=== PATIENT | female | born 1945 | race Caucasian/White ===

== ENCOUNTER → 2016-10-10 | Day surgery (SDC) | payer MEDICARE ==
[~2016-10-10] VITALS: Ht 152.4 cm; Wt 86.2 kg
[~2016-10-10] MED LIST: ACETAMINOPHEN 500 MG TAB As Ordered ONE; ACETAMINOPHEN 500 MG TAB PO ONE; ACETYLCHOLINE OPHTH SOLN 1% 2ML (MIOCHOL-E) As Ordered ONE; ASPI325T28 PO; BALANCED SALT IRRIGATION SOLUTION 500ML BAG (FOR OR EYE MACHINE) As Ordered ONE; CHLO25TA PO; D5W/0.2% SODIUM CHLORIDE 250 ML IV ONE; FURO1TAB15 PO; FURO40TA2 PO; HEALON DUET (HEALON 10MG/ML 0.55ML & HEALON ENDOCOAT 30MG/ML 0.85ML) As Ordered ONE; HUMA100I3 SC; INSUH10VL SC; INSUHUMDS SC; INSULANT SC; LANO0.1211 PO; LIDOCAINE 0.75%/EPINEPHRINE 0.025% IN BSS 1ML SYR INTRACAMERAL (OR ONLY) As Ordered ONE; LIDOCAINE 4% INJ 5 ML AMP As Ordered ONE; LIPI20TA PO; LR 1,000 ML IV SCH; METO-207 PO; MIDAZOLAM INJ 2 MG/2 ML VIAL (J2250) As Ordered ONE; MULTCAP9 PO; OFLOXACIN 0.3 % (OCUFLOX) OPTH SOL 5ML OS ONE; ONDANSETRON 4MG/2ML VIAL (J2405) IV PRN; PANT40TA2 PO; PHENYLEPHRINE 2.5% OPHTH SOL 2ML OS ONE; PLAV75TA38 PO; POVIDONE-IODINE 5% OPHTH PREP SOL 30ML As Ordered ONE; PRAL1INJ SC; PROPARACAINE 0.5% OPHTH SOL 15ML OS ONE; SOTA80TA6 PO; SPIR100T PO; SPIR25TA2 PO; TOBRADEX OPHTH OINT 3.5 GM As Ordered ONE; TROPICAMIDE 1% OPHTH SOLN 2ML OS ONE; XANA0.25 PO; fentaNYL 100 MCG/2 ML INJECTION (J3010) As Ordered ONE
[2016-10-10 14:15] VITALS: BP 112/58
--- NOTE | 2016-10-11 10:56 | RO ---
DATE OF PROCEDURE: 10/10/2016 PREOPERATIVE DIAGNOSIS: 1. Visually significant nuclear sclerotic cataract left eye 2. Glaucoma, left eye POSTOPERATIVE DIAGNOSIS: Same PROCEDURE: 1. Cataract extraction with phacoemulsification, placement of intraocular lens Raghav AU00TO, 21.0 D , left eye 2. Use of endoscopic cyclophotocoagulation, left eye SURGEON: Bright Borrero DO INSURANCE EXAMINER: ANESTHESIA: Local with monitored anesthesia care (MAC). COMPLICATIONS: None. POSTOPERATIVE CONDITION: Stable. INDICATION FOR SURGERY: Blurred vision left eye affecting patient's activities of daily living. DESCRIPTION OF PROCEDURE: The patient was seen in the preoperative area and properly identified. The correct operative eye was identified and marked. Attention was turned to that eye. The patient received topical antibiotics in the preoperative area. The patient then received topical dilating drops consisting of tropicamide and phenylephrine. The patient was then transferred to the operating room. The correct side was reidentified. The patient received topical anesthetics and antibiotics on the surface of the eye. The eye was prepped and draped in a sterile fashion. The upper and lower eyelids were isolated with Tegaderm tape, and the lids were held open with an adjustable speculum. Using a sideport blade, a paracentesis incision was made. Intraocular preservative-free lidocaine was then injected into the anterior chamber. Viscoelastic was then injected into the anterior chamber through the paracentesis. Using a 2.65 mm sharp-tipped keratome, the anterior chamber was entered via a temporal clear corneal incision. A continuous curvilinear capsulorrhexis was created with the aid of a 26-gauge cystotome and Utrata forceps. Hydrodissection was performed with balanced salt solution (BSS) on a blunt cannula until the nucleus was freely mobile. The crystalline lens was phacoemulsified and aspirated. Additional cohesive viscoelastic was placed into the capsular bag to deepen it. A AU00TO was placed into the capsular bag and placement was confirmed by visualizing the anterior capsulorhexxis. A small anterior capsular tear was present that did not extend posteriorly. Additional viscoelastic was placed in the ciliary sulcus and then the endoscopic photocoagulation probe was placed into the anterior chamber through a temporal clear corneal incision. The ciliary processes were visualized and then treatment was applied to 270 degrees on 0.15 energy in a continuous mode and then the probe was withdrawn from the eye. Viscoelastic was removed from the eye using the irrigation aspiration function. The lens remained in good position. BSS was used to hydrate the primary temporal clear corneal incision. Miochol was placed to a moderately small pupil. Resure sealant was placed on the temporal incision for closure and then BSS was used to refill the anterior chamber. The incisions were tested and found to be water tight. The eyelid speculum was then carefully removed. Tobradex ointment was placed in the eye. An eye patch and shield were then secured over the eye. The patient tolerated the procedure well and was discharged to the recovery unit in a stable condition. MARIN
== END | disposition home or self-care (01) ==
LOC: M SDC 10:36
PROVIDERS: ATTEND Ophthalmology
DX: H25.12 Age-related nuclear cataract, left eye (principal); H40.9 Unspecified glaucoma; R94.31 Abnormal electrocardiogram [ECG] [EKG]; I49.9 Cardiac arrhythmia, unspecified; I25.10 Atherosclerotic heart disease of native coronary artery without angina pectoris; I25.2 Old myocardial infarction; I11.9 Hypertensive heart disease without heart failure; E78.00 Pure hypercholesterolemia, unspecified; R60.0 Localized edema; R55 Syncope and collapse; E87.5 Hyperkalemia; E10.9 Type 1 diabetes mellitus without complications; K21.9 Gastro-esophageal reflux disease without esophagitis; R29.898 Other symptoms and signs involving the musculoskeletal system; M12.9 Arthropathy, unspecified; M54.9 Dorsalgia, unspecified; F41.9 Anxiety disorder, unspecified; R51 Headache; G62.9 Polyneuropathy, unspecified; G47.33 Obstructive sleep apnea (adult) (pediatric); J30.2 Other seasonal allergic rhinitis; R06.83 Snoring; R06.02 Shortness of breath; R32 Unspecified urinary incontinence; N28.9 Disorder of kidney and ureter, unspecified; Z88.2 Allergy status to sulfonamides; Z88.5 Allergy status to narcotic agent; Z88.8 Allergy status to other drugs, medicaments and biological substances; Z79.899 Other long term (current) drug therapy; Z79.82 Long term (current) use of aspirin; Z79.4 Long term (current) use of insulin; Z86.73 Personal history of transient ischemic attack (TIA), and cerebral infarction without residual deficits; Z95.0 Presence of cardiac pacemaker; Z95.5 Presence of coronary angioplasty implant and graft; Z95.810 Presence of automatic (implantable) cardiac defibrillator; Z87.440 Personal history of urinary (tract) infections
CPT/HCPCS: 66711; 66984; J2250; J3010; V2632